=== PATIENT | male | born 1940 | race Caucasian/White ===

== ENCOUNTER 2017-05-31 10:28 | Emergency (ER) | payer MEDICARE, BC ==
[2017-05-31] MEDS ORDERED: Benzoin Compound STICK TOPICAL ONE (11:01)
--- NOTE | 2017-05-31 11:26 | UC ---
Laceration HPI - HPI Summary HPI Summary: goured right 3rd mcp joint 2 3 days ago---has a skin tear that he bandaged himself and is here now to have wound evaluated and dressing changed - History Of Current Complaint Chief Complaint: UCLaceration Stated Complaint: SKINNED KNUCKLE Time Seen by Provider: 05/31/17 11:00 Hx Obtained From: Patient Laceration Location: Hand Mechanism Of Injury: Blunt Trauma Onset/Duration: Sudden Onset, Lasting Days - 3 Pain Intensity: 3 Pain Scale Used: 0-10 Numeric Aggravating Factors: Nothing - Allergies/Home Medications Allergies/Adverse Reactions: Allergies Allergy/AdvReac Type Severity Reaction Status Date / Time No Known Allergies Allergy Verified 05/31/17 10:52 Home Medications: Home Medications Brimonidine 0.2 % * [Alphagan P 0.2% *] 1 drop BOTH EYES TID 05/31/17 [History Confirmed 05/31/17] Dorzolamide 2% OPTH (NF) [Trusopt 2% OPTH (NF)] 1 drop BOTH EYES TID 05/31/17 [ History Confirmed 05/31/17] Latanoprost 0.005% OPTH (NF) [Xalatan 0.005% OPTH*] 1 drop BOTH EYES BEDTIME 09/16 [History Confirmed 05/31/17] PMH/Surg Hx/FS Hx/Imm Hx Previously Healthy: No - Surgical History Surgical History: None - Family History Known Family History: Positive: None - Social History Occupation: Retired Lives: With Family Alcohol Use: Rare Substance Use Type: None Smoking Status (MU): Never Smoked Tobacco - Immunization History Hx Tetanus, Diphtheria Vaccination: Yes Vaccination Up to Date: Yes Review of Systems Constitutional: Negative Skin: Negative Eyes: Negative ENT: Negative Respiratory: Negative Cardiovascular: Negative Gastrointestinal: Negative Genitourinary: Negative Motor: Negative Neurovascular: Negative Musculoskeletal: Negative Neurological: Negative Psychological: Negative Is Patient Immunocompromised?: No All Other Systems Reviewed And Are Negative: Yes Physical Exam Triage Information Reviewed: Yes Appearance: Well-Appearing, No Pain Distress, Well-Nourished Vital Signs: Initial Vital Signs Temp 96.9 F 05/31/17 10:50 Pulse 56 05/31/17 10:50 Resp 16 05/31/17 10:50 BP 153/70 05/31/17 10:50 Pulse Ox 100 05/31/17 10:50 Vital Signs Reviewed: Yes Eye Exam: Normal Eyes: Positive: Conjunctiva Clear ENT Exam: Normal ENT: Positive: Normal ENT inspection, Hearing grossly normal. Negative: Nasal congestion, Nasal drainage, Trismus, Muffled/hoarse voice Dental Exam: Normal Neck exam: Normal Neck: Positive: Supple, Nontender Respiratory Exam: Normal Respiratory: Positive: No respiratory distress, No accessory muscle use Cardiovascular Exam: Normal Cardiovascular: Positive: RRR, Pulses Normal, Brisk Capillary Refill Abdomen Description: Negative: Distended, Guarding, Hernia @, Hepatomegaly, McBurney's Point Tenderness, Peritoneal Signs, Pulsatile Mass, Splenomegaly Bowel Sounds: Positive: Present Musculoskeletal Exam: Normal Musculoskeletal: Positive: Strength Intact, ROM Intact, No Edema Neurological Exam: Normal Neurological: Positive: Alert, Muscle Tone Normal Psychological Exam: Normal Skin Exam: Normal - shaped skin tear over 3rd right mcp joint, Other Skin: Positive: Other Laceration Repair - Laceration Repair 1 Description: Irregular Laceration Size After Repair: Length (cm) - 3 cm total, Width (mm) - 2-5 mm, Depth (mm) - 2 Modified For Repair: No Cleansing Completed Via Routine Prep: Yes Irrigation With Pressure Irrigation Device: Yes Closure Material: SteriStrips Re-Evaluation - Re-Evaluation First Eval Change: Improved - tolerated well unable to completely approximate the wound --- steri applied where able, dresing lorena wrap andsplint applied n/m/c intact distally before and after wound care Laceration Course/Dx - Course/Dx Course Of Treatment: change dressing daily, check daily for wound infection, follow wound and blood pressure with pcp - Differential Dx - Laceration/Wound Differental Diagnoses: Avulsion, Cellulitis, Healing Wound, Laceration, Non- Viable Graft Provider Diagnoses: right 3rd mcp skin tear with avulsion, high blood pressure without diagnosis of hypertension Discharge - Discharge Plan Condition: Stable Disposition: HOME Patient Education Materials: Skin Avulsion (ED), Hypertension (ED), Steristrips (ED) Referrals: No Primary Care Phys,NOPCP [Primary Care Provider] - Additional Instructions: 1. Keep dressing clean and dry 2. Change dressing daily, and check for s/s of infection 3. Call PCP in when you return home to re-check blood pressure
[2017-05-31 11:47] VITALS: BP 132/75
== END 2017-05-31 11:30 | disposition home or self-care (01) ==
LOC: UCEAST 10:28
DX: S61.212A Laceration without foreign body of right middle finger without damage to nail, initial encounter (principal); X58.XXXA Exposure to other specified factors, initial encounter; Y92.9 Unspecified place or not applicable
CPT/HCPCS: 99203; G0463